=== PATIENT | male | born 2000 | race African-American/Black ===

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

== ENCOUNTER 2020-04-18 16:39 | Emergency (ER) | payer OTHER ==
[~2020-04-18] VITALS: Ht 185.4 cm; Wt 59.0 kg
[~2020-04-18 16:39] MED LIST changes: +KEFLEX500 M1 PO
[2020-04-18] MEDS ORDERED: ONDANSETRON HCL4 M2 PO (17:26)
[2020-04-18 17:40] VITALS: BP 111/74
== END 2020-04-18 17:40 | disposition home or self-care (01) ==
LOC: M.ERS 16:39
DX: U07.1 COVID-19 (principal)